=== PATIENT | female | born 1930 | race Caucasian/White ===

== ENCOUNTER 2016-09-24 11:09 | Outpatient (CLI) | payer MEDICARE | END 2016-09-24 11:10 | disposition EMS.NT | DX: R53.81 Other malaise (principal); R05 Cough; R06.02 Shortness of breath ==

== ENCOUNTER 2016-10-09 11:12 | Outpatient (CLI) | payer MEDICARE | END 2016-10-09 11:13 | disposition home or self-care (01) | DX: R91.8 Other nonspecific abnormal finding of lung field (principal) ==

== ENCOUNTER 2016-11-19 13:47 | Outpatient (CLI) | payer MEDICARE | END 2016-11-19 13:48 | disposition home or self-care (01) | DX: J47.9 Bronchiectasis, uncomplicated (principal); J98.11 Atelectasis ==

== ENCOUNTER 2018-08-24 14:07 | Outpatient (CLI) | payer MEDICARE ==
--- NOTE | 2018-08-24 16:45 | XRAY Report ---
Reason: UNSPECIFIED SPRAIN OF RIGHT HIP, INITIAL ENCOUNTER Procedure Date: 08/24/2018 Accession Number: [id number] / [id number] Procedure: XRN - Hip w/Pelvis 2-3V RT CPT Code: FULL RESULT: EXAM: PELVIS AND RIGHT HIP RADIOGRAPHY EXAM DATE: 08/24/2018 02:40 PM. CLINICAL HISTORY: Fall 7 days ago, pain UNSPECIFIED SPRAIN OF RIGHT HIP, INITIAL ENCOUNTER. COMPARISON: None. TECHNIQUE: 3 views. FINDINGS: Bones: No fractures or bone lesion. Degenerative change lower lumbar spine Joints: Right total hip replacement. No dislocation. Minor degenerative change left hip. Soft Tissues: Unremarkable IMPRESSION: Status post right hip arthroplasty without unexpected findings. Mild degenerative change left hip. RADIA
== END 2018-08-24 14:08 | disposition home or self-care (01) ==
LOC: DI.N 14:07
PROVIDERS: ATTEND Internal Medicine
DX: S73.101A Unspecified sprain of right hip, initial encounter (principal); M16.12 Unilateral primary osteoarthritis, left hip; Z96.641 Presence of right artificial hip joint

== ENCOUNTER 2019-02-28 15:36 | Outpatient (CLI) | payer MEDICARE | END 2019-02-28 15:37 | disposition EMS.NT | LOC: EMS 15:36 | PROVIDERS: ATTEND Surgery | DX: M25.521 Pain in right elbow (principal); W01.0XXA Fall on same level from slipping, tripping and stumbling without subsequent striking against object, initial encounter; Y92.000 Kitchen of unspecified non-institutional (private) residence as the place of occurrence of the external cause ==

== ENCOUNTER 2020-04-07 11:52 | Outpatient (CLI) | payer MEDICARE | END 2020-04-07 11:53 | disposition critical access hospital (66) | LOC: EMS 11:52 | PROVIDERS: ATTEND Surgery | DX: R42 Dizziness and giddiness (principal) | CPT/HCPCS: A0425; A0429 ==

== ENCOUNTER 2020-04-07 12:14 | Emergency (ER) | payer MEDICARE ==
[2020-04-07 12:47] LABS: BILIRUBIN,URINE NEGATIVE (NEGATIVE); CLARITY,URINE CLEAR (CLEAR); GLUCOSE, URINE (UA) NEGATIVE (NEGATIVE); KETONES,URINE (UA) NEGATIVE (NEGATIVE); LEUKOCYTE ESTERASE, URINE TRACE (NEGATIVE); NITRITE,URINE NEGATIVE (NEGATIVE); OCCULT BLOOD,URINE NEGATIVE (NEGATIVE); PROTEIN,URINE NEGATIVE (NEGATIVE); UROBILINOGEN,URINE 0.2 (NORMAL) E.U./dL (NORMAL)
[2020-04-07 12:48] LABS: BASOPHILS # (AUTO) 0.1 10^3/uL (0.0-0.1); BASOPHILS % (AUTO) 0.5 %; EOSINOPHILS % (AUTO) 0.1 %; HGB - HEMOGLOBIN 15.3 g/dL (12.0-16.0); LYMPHOCYTES # (AUTO) 1.8 10^3/uL (1.5-3.5); LYMPHOCYTES % (AUTO) 15.1 %; MEAN CORPUSCULAR HEMOGLOBIN 30.3 pg (27.0-31.0); MEAN CORPUSCULAR HGB CONC 31.9 g/dL (32.0-36.0); MEAN PLATELET VOLUME 9.3 fL (7.9-10.8); MONOCYTES # (AUTO) 0.3 10^3/uL (0.0-1.0); MONOCYTES % (AUTO) 2.5 %; NEUTROPHILS # (AUTO) 9.7 10^3/uL (1.5-6.6); NEUTROPHILS % (AUTO) 81.2 %; PLT - PLATELET COUNT 347 10^3/uL (130-450); RED BLOOD COUNT 5.05 10^6/uL (4.20-5.40); RED CELL DISTRIBUTION WIDTH 13.3 % (12.0-15.0)
[2020-04-07 13:08] LABS: BACTERIA,URINE Few /HPF (None Seen); EPITHELIAL CELLS,UR RARE Renal Tubular /HPF (<= Few); MUCUS,URINE Few Strands; SQUAMOUS EPITHELIAL CELL,UR FEW Squamous (<= Few)
[2020-04-07 13:09] LABS: ALBUMIN 4.2 g/dL (3.2-5.5); ALBUMIN/GLOBULIN RATIO 1.4 (1.0-2.2); BILIRUBIN,TOTAL 1.2 mg/dL (0.2-1.0); CALCIUM 10.3 mg/dL (8.5-10.3); CREATININE 0.6 mg/dL (0.4-1.0); TOTAL PROTEIN 7.3 g/dL (6.7-8.2)
[2020-04-07] MEDS ORDERED: cefTRIAXone 1 GM VIAL IVP STA (14:41)
[2020-04-07] MEDS ORDERED: MECLIZINE 12.5 MG TABLET PO STA (14:41)
--- NOTE | 2020-04-07 14:51 | ED Physician Documentation ---
History of Present Illness - Stated complaint Stated Complaint: DIZZINESS - Chief complaint Chief Complaint: General - History obtained from History obtained from: Patient, Family - History of Present Illness Timing: Today Pain level max: 0 Pain level now: 0 - Additonal information Additional information: 89-year-old female presents to the emergency department with a sensation of the room spinning about around her when she stands, moves positions or turns her head quickly. This started this morning. Had some nausea earlier, this is since resolved. No trauma. No other focal neurological deficits. No numbness or tingling. No headache. No fevers. No chills. Worse with movement and better with lying still Review of Systems Constitutional: denies: Fever, Chills Respiratory: denies: Cough GI: reports: Nausea. denies: Vomiting, Diarrhea : denies: Dysuria Skin: denies: Rash Musculoskeletal: denies: Neck pain, Back pain Neurologic: denies: Focal weakness, Numbness, Seizure, Confused, Headache, Head injury, LOC PD PAST MEDICAL HISTORY - Past Medical History Cardiovascular: Hypertension Respiratory: None Neuro: None Endocrine/Autoimmune: None GI: None SEATING UPHOLSTERER: None : None HEENT: None Psych: None Musculoskeletal: None Derm: None - Past Surgical History General: Cholecystectomy /SEATING UPHOLSTERER: section, Hysterectomy - Present Medications Home Medications: Ambulatory Orders Medication Instructions Recorded Confirmed Meclizine HCl 12.5 - 25 mg PO Q6H PRN #20 tablet 04/07/20 Ondansetron Odt [Zofran] 4 mg TL Q6H PRN #10 tablet 04/07/20 - Allergies Allergies/Adverse Reactions: Allergies Allergy/AdvReac Type Severity Reaction Status Date / Time No Known Drug Allergies Allergy Verified 04/07/20 12:33 - Social History Does the pt smoke?: No Smoking Status: Never smoker ETOH Use: Wine, Beer Does the pt have substance abuse?: No - Immunizations Immunizations are current?: Yes PD ED PE NORMAL - Vitals Vital signs reviewed: Yes - General General: Alert and oriented X 3, No acute distress, Well developed/nourished - HEENT HEENT: Atraumatic, PERRL, EOMI, Ears normal, Moist mucous membranes, Pharynx benign, Other (Positive hallpike the right with horizontal nystagmus.) - Neck Neck: Supple, no meningeal sign - Cardiac Cardiac: RRR, Strong equal pulses - Respiratory Respiratory: No respiratory distress, Clear bilaterally - Abdomen Abdomen: Soft, Non tender, Non distended - Derm Derm: Warm and dry - Extremities Extremities: No edema - Neuro Neuro: Alert and oriented X 3, 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 Normal cerebellar tests. Results - Vitals Vitals: Vital Signs - 24 hr 04/07/20 04/07/20 04/07/20 12:18 12:23 13:39 Temperature 36.9 C Heart Rate 82 77 71 Respiratory 16 21 17 Rate Blood Pressure 170/80 H 161/68 H 155/70 H O2 Saturation 93 96 95 04/07/20 04/07/20 14:59 16:09 Temperature 36.5 C 36.1 C L Heart Rate 72 76 Respiratory 23 18 Rate Blood Pressure 150/61 H 150/53 H O2 Saturation 96 100 Oxygen O2 Source Room air - EKG (time done) 1320 Rate: Rate (enter#) (67) Rhythm: NSR [place]: Normal Intervals: Normal MD QRS: Normal Ischemia: Normal ST segments - Labs Labs: Laboratory Tests 04/07/20 04/07/20 04/07/20 12:20 12:20 12:20 WBC 12.0 H RBC 5.05 Hgb 15.3 Hct 48.0 H MCV 95.0 MCH 30.3 MCHC 31.9 L RDW 13.3 Plt Count 347 MPV 9.3 Neut # (Auto) 9.7 H Lymph # (Auto) 1.8 [place] # (Auto) 0.3 Eos # (Auto) 0.0 Baso # (Auto) 0.1 Absolute Nucleated RBC 0.00 Nucleated RBC % 0.0 Sodium 141 Potassium 3.8 Chloride 102 Carbon Dioxide 24 Anion Gap 15.0 H BUN 13 Creatinine 0.6 Estimated GFR (MDRD) 94 Glucose 117 H Calcium 10.3 Total Bilirubin 1.2 H AST 18 ALT 15 Alkaline Phosphatase 64 Troponin I High Sens 4.9 Total Protein 7.3 Albumin 4.2 Globulin 3.1 Albumin/Globulin Ratio 1.4 Lipase 24 Urine Color Urine Clarity Urine pH Ur Specific [place] Urine Protein Urine Glucose (UA) Urine Ketones Urine Occult Blood Urine Nitrite Urine Bilirubin Urine Urobilinogen Ur Leukocyte Esterase Urine RBC Urine WBC Ur Epithelial Cells Ur Squamous Epith Cells Urine Bacteria Urine Mucus Ur Microscopic Review Urine Culture Comments 04/07/20 12:40 WBC RBC Hgb Hct MCV MCH MCHC RDW Plt Count MPV Neut # (Auto) Lymph # (Auto) [place] # (Auto) Eos # (Auto) Baso # (Auto) Absolute Nucleated RBC Nucleated RBC % Sodium Potassium Chloride Carbon Dioxide Anion Gap BUN Creatinine Estimated GFR (MDRD) Glucose Calcium Total Bilirubin AST ALT Alkaline Phosphatase Troponin I High Sens Total Protein Albumin Globulin Albumin/Globulin Ratio Lipase Urine Color YELLOW Urine Clarity CLEAR Urine pH 8.0 H Ur Specific [place] 1.020 Urine Protein NEGATIVE Urine Glucose (UA) NEGATIVE Urine Ketones NEGATIVE Urine Occult Blood NEGATIVE Urine Nitrite NEGATIVE Urine Bilirubin NEGATIVE Urine Urobilinogen 0.2 (NORMAL) Ur Leukocyte Esterase TRACE H Urine RBC NONE Urine WBC 0-3 Ur Epithelial Cells RARE Renal Tubular Ur Squamous Epith Cells FEW Squamous Urine Bacteria Few Urine Mucus Few Strands Ur Microscopic Review INDICATED Urine Culture Comments INDICATED PD MEDICAL DECISION MAKING - ED course Complexity details: reviewed results, re-evaluated patient, considered differential, d/w patient ED course: Patient with what appears to be BPPV. Positive Hallpike. No cerebellar findings to suggest stroke. Feels better after meclizine. Ambulating well. NIH stroke scale is 0. Patient and family counseled regarding signs and symptoms for which I believe and urgent re-evaluation would be necessary. Patient with good understanding of and agreement to plan and is comfortable going home at this time This document was made in part using voice recognition software. While efforts are made to proofread this document, sound alike and grammatical errors may occur. Departure - Departure Disposition: 01 Home, Self Care Clinical Impression: Vertigo Condition: Good Instructions: ED BPV Vertigo Follow-Up: Evan Newby MD [Primary Care Provider] - Within 1 week Prescriptions: Meclizine HCl 12.5 - 25 mg PO Q6H PRN #20 tablet PRN Reason: Vertigo Ondansetron Odt [Zofran] 4 mg TL Q6H PRN #10 tablet PRN Reason: Nausea / Vomiting Comments: You can use the meclizine at home as needed for vertigo. Return if she worsens. Follow-up with her doctor for further care. Discharge Date/Time: 04/07/20 16:21
[2020-04-07 16:09] VITALS: BP 150/53
== END 2020-04-07 16:21 | disposition home or self-care (01) ==
LOC: EDUNIT# → ED 12:14
DX: R42 Dizziness and giddiness (principal)
CPT/HCPCS: 36415; 80053; 81001; 83690; 84484; 85025; 87086; 93005; 96374; 99284; A9270; 81003